=== PATIENT | female | born 1945 | race Caucasian/White ===

== ENCOUNTER 2017-01-20 12:33 | Emergency (ER) | payer MEDICARE, BC ==
[2017-01-20 12:41] VITALS: BP 133/102
--- OUTSIDE RECORDS SUMMARY | 2017-01-20 13:06 | XMS REPORT | Continuity of Care Document ---
:1945 Author Organization [facility] [place] [address] Care Team Providers Name Role Phone Unavailable Primary Care Provider Unavailable Source Comments This disclosure is being made pursuant to the [employer] program and maynot contain all information available regarding this patient.[facility] Active Allergies and Adverse Reactions No Known Allergies Current Medications Be aware that medications may not be up to date as of this document. Alwaysverify current medications with the patient. Prescription Sig. Disp. Refills Start Date End Date Status metFORMIN (GLUCOPHAGE) Take 500 mg by Active 500 MG tablet mouth daily after breakfast. metFORMIN (GLUCOPHAGE) Take 500 mg by Active 500 MG tablet mouth 2 (two) times daily with meals. 1/2 tablet at supper atorvastatin (LIPITOR) 40 Take 40 mg by mouth Active MG tablet daily. omeprazole (PRILOSEC) 20 Take 20 mg by mouth Active MG capsule every morning before breakfast. prednisoLONE acetate Place 1 drop into 10 mL 1 02/21/2015 Active (PRED FORTE) 1 % both eyes 4 (four) ophthalmic suspension times daily. ciprofloxacin (CILOXAN) Place 1 drop into 5 mL 1 03/21/2015 Active 0.3 % ophthalmic solution the right eye 4 (four) times daily. ketorolac (ACULAR) 0.5 % Place 1 drop into 5 mL 1 03/21/2015 Active ophthalmic solution the right eye 4 (four) times daily. prednisoLONE acetate Place 1 drop into 5 mL 1 03/21/2015 Active (PRED FORTE) 1 % the right eye 4 ophthalmic suspension (four) times daily. Active Problems Not on file Social History Tobacco Use Types Packs/Day Years Used Date Never Assessed Plan of Care Health Maintenance Due Date Last Done Comments Tetanus/Pertussis (1 - Tdap) 1962 Colonoscopy 1993 Mammogram 1993 Well Adult Visit 1993 Zoster Vaccine 60+ 2003 Bone Density 2008 Pneumococcal Low/Medium Risk 65+ (1 of 2 - PCV13) 2008 Influenza Immunization (#1) 2016 Results from Last 3 Months Not on file Insurance Payer Benefit Plan / Subscriber ID Type Phone Address Group MEDICARE MEDICARE A AND B [id number] [phone] [address] [place] [address] [employer] [place] [employer] [id number] Out of State [phone] [address] [facility] [place] [address] y [phone] [facility] [address]
--- NOTE | 2017-01-20 13:14 | ERNOTE ---
Lower Extremity HPI - Narrative Date of Service: 01/20/17 - General Lower Extremities Pain: knee: left Time Seen by Provider: 01/20/17 12:56 Source: patient Exam Limitations: no limitations - Immun/Allergies/Home Medications Immunizations: IMMUNIZATION HX Immunizations Up to Date Yes Allergies/Adverse Reactions: Allergies Allergy/AdvReac Type Severity Reaction Status Date / Time No Known Allergies Allergy Unverified 01/20/17 12:41 Home Medications: HOME MEDICATIONS Aspirin [Aspirin Chewable] 81 mg PO DAILY 01/20/17 [Last Taken Unknown] Atorvastatin Calcium [Lipitor] 40 mg PO HS 01/20/17 [Last Taken Unknown] Budesonide/Formoterol Fumarate [Symbicort 80-4.5 Mcg Inhaler] 2 puff IH DAILY [Last Taken Unknown] Cholecalciferol (Vitamin D3) [Vitamin D3] 5,000 unit PO DAILY 01/20/17 [Last Taken Unknown] Lisinopril [Prinivil] 10 mg PO DAILY 01/20/17 [Last Taken Unknown] Naproxen [Naprosyn] 500 mg PO BID PRN #60 tab 01/20/17 [Last Taken Unknown] Omeprazole [Prilosec] 20 mg PO DAILY 01/20/17 [Last Taken Unknown] metFORMIN HCL [Metformin HCl ER] 250 mg PO BID 01/20/17 [Last Taken Unknown] - History of Present Illness Narrative: Pt. comes in with c/o L knee pain after she was walking her dog yesterday. Pt. denies any injury but states that she was walking on uneven ground. Pt. denies any numbness tingling, SOB, CP, NVD fever, or recent illness. Review of Systems - Review of Systems Constitutional: Present: no symptoms reported. Absent: recent illness, fever, chills, weakness, fatigue, malaise EYE: Present: no symptoms reported ENT: Present: no symptoms reported Respiratory: Present: no symptoms reported. Absent: shortness of breath, cough , wheezing Cardiology: Present: no symptoms reported. Absent: chest pain, palpitations, edema Gastrointestinal/Abdominal: Present: no symptoms reported. Absent: nausea, vomiting, diarrhea Genitourinary: Present: no symptoms reported Musculoskeletal: Present: joint pain - L knee Skin: Present: no symptoms reported Neurological: Present: no symptoms reported. Absent: headache, dizziness/light- headedness, numbness, tingling All Other Systems: All systems neg except as marked - Patient's Past Medical History Patient History - Medical: Diabetes Type 2 Patient History - Cardiac/Respiratory: COPD Patient History - Cancer: No Hx of Cancer Patient History - Surgical Procedures: Cataracts Patient History - Other: None - Social History Smoking Status: Never smoker Have you smoked in the past 12 months: No - Immunizations Immunizations Up to Date: Yes Physical Exam - Physical Exam General Appearance: Present: wd/wn, alert, no apparent distress Eye Exam: Normal inspection: bilateral, PERRL: bilateral, EOMI: bilateral Ears, Nose, Throat: Present: normal ENT inspection, normal pharynx Neck: Present: normal inspection, nontender. Absent: lymphadenopathy (R), lymphadenopathy (L) Respiratory: Present: no respiratory distress, normal breath sounds, no accessory muscle use, chest nontender, lungs clear Cardiovascular/Chest: Present: regular rate, rhythm, no murmur, normal peripheral pulses Gastrointestinal/Abdominal: Present: normal bowel sounds, nontender Back Exam: Present: normal inspection Extremity Exam: Present: normal range of motion, joint swelling, other - L MCL pain and laxity Neurological Exam: Present: alert, oriented, normal mood/affect, no motor/ sensory deficits Skin Exam: Present: normal color, warm/dry. Absent: pallor, skin rash ED Progress - Vital Signs Patient's Vital Signs:: I have reviewed the patient's vital signs. Vital Signs: Vital Signs 01/20/17 12:38 Temperature 35.3 C L Pulse Rate 102 H Respiratory 12 Rate Blood Pressure 133/102 O2 Sat by Pulse 98 Oximetry - X-Ray X-Ray #1 X-Ray: knee Interpretation: Interp. by me X-ray Comments: no acute ossious abnormality fragment of calcified material in joint feel taht this is most likley from chronic changes and not from fracture and pt. pain is not bony in etiology. - Progress/Reassessment Chief Complaint: Lower Extremity Pain/ Injury Departure Clinical Impression: Strain of knee and leg, left Qualifiers: Encounter type: initial encounter Qualified Code(s): S86.912A - Strain of unspecified muscle(s) and tendon(s) at lower leg level, left leg, initial encounter - Departure Disposition: Home self-care Condition: Good Instructions: Medial Collateral Knee Ligament Sprain With Phase I Rehab- [facility] Additional Instructions: Please rest knee alternate Ice and heat as discussed and leave wrapped except when bathing. Please follow up with Orthopedics in a week if no improvement. Referrals: Jose Francisco Hankins MD [Staff Physician] - Prescriptions: Naproxen [Naprosyn] 500 mg PO BID PRN #60 tab PRN Reason: Pain
== END 2017-01-20 13:14 | disposition home or self-care (01) ==
LOC: ER 12:33
DX: S86.912A Strain of unspecified muscle(s) and tendon(s) at lower leg level, left leg, initial encounter (principal); Y93.K1 Activity, walking an animal; Y92.9 Unspecified place or not applicable; Y99.9 Unspecified external cause status; E11.9 Type 2 diabetes mellitus without complications